=== PATIENT | male | born 1935 | race African-American/Black ===

== ENCOUNTER 2020-05-29 04:06 | Observation (INO) | payer MEDICARE ==
[2020-05-29 04:55] LABS: #Eosinphils 0.3 10x3/uL (0.0-0.5); #Monocytes 0.6 10x3/uL (0.0-1.1); #Neutrophils 3.2 10x3/uL (1.5-8.4); %Basophils 0.3 % (0.0-2.0); %Eosinophils 4.3 % (0.0-6.0); %Lymphocytes 28.6 % (18.0-47.0); %Monocytes 10.9 % (0.0-10.0); %Neutrophils 55.6 % (40.0-75.0); Hemoglobin 11.1 g/dL (13.5-17.5); Mean Corpuscular HGB CONC 31.8 g/dL (32.0-36.0); Mean Corpuscular Hemoglobin 28.2 pg (27.0-33.0); Mean Corpuscular Volume 88.6 fl (81.2-95.1); Mean Platelet Volume 10.1 fl (7.4-10.4); RBC Distribution Width 15.2 % (11.5-14.5); Red Blood Cell (RBC) Count 3.94 10x6/uL (4.32-5.72); White Blood Cell (WBC) Count 5.8 10x3/uL (3.5-10.5)
[2020-05-29 05:03] LABS: Bilirubin Neg (Negative); Blood, Urine Negative (Negative); Clarity Clear (Clear); Glucose, Urine (Dipstick) Normal (Negative); Ketone, Urine Negative (Negative); Leukocyte Negative (Negative); Nitrite Negative (Negative); Protein, Urine (Dipstick) 15 mg/dl (Neg-Trace); Urobilinogen Normal mg/dL (Less than 2)
[2020-05-29 05:10] LABS: ALT (SGPT) 17 U/L (8-55); AST (SGOT) 17 U/L (5-34); Albumin 4.4 g/dL (3.4-4.8); Alkaline Phosphatase 71 U/L (40-110); Anion Gap 17 mmol/L (10-20); BUN (Urea Nitrogen) 22 mg/dL (8.4-25.7); Bilirubin, Total 0.4 mg/dL (0.2-1.2); Calc. Creatinine Clearance 0 mL/min (70-130); Carbon Dioxide 25 mmol/L (23-31); Chloride 104 mmol/L (98-107); Globulin 3.4 g/dL (2.4-3.5); Glucose 140 mg/dL (83-110); Potassium 4.7 mmol/L (3.5-5.1); Protein, Total 7.8 g/dL (5.8-8.1); Sodium 141 mmol/L (136-145)
[2020-05-29 05:26] LABS: Platelet Count 193 10x3/uL (150-450)
[2020-05-29 05:41] LABS: SARS-CoV-2 NAA Rapid Test Not Detected (NotDetected)
[2020-05-29] MEDS ORDERED: Acetaminophen 325 MG TAB PO PRN (08:55)
[2020-05-29] MEDS ORDERED: Ondansetron PF 4 MG/2 ML Vial IVP PRN (08:55)
[2020-05-29] MEDS ORDERED: Dextrose 5% in Water 1,000 ML IV PRN (09:00)
[2020-05-29] MEDS ORDERED: Insulin Regular 300 UNITS/3 ML VIAL SC PRN (09:00)
[2020-05-29] MEDS ORDERED: Dextrose 50% Abboject 50 ML SYRINGE SLOW IVP PRN (09:00)
[2020-05-29] MEDS ORDERED: Simethicone Chewable 80 MG TAB PO PRN (09:01)
[2020-05-29 09:58] LABS: Troponin I Less than 0.010 ng/mL (< 0.028)
[2020-05-29] MEDS ORDERED: Mag-Al Plus 1200 MG/1200 MG/120 MG/30 ML UDCUP PO PRN (10:52)
[2020-05-29 12:21] LABS: Troponin I 0.017 ng/mL (< 0.028)
[2020-05-29 13:35] VITALS: BMI 30.2
[2020-05-29] MEDS: Enoxaparin Sodium 40 MG/0.4 ML SYRINGE SC SCH (13:56)
[2020-05-29] MEDS: Aspirin Chewable 81 MG TAB PO SCH (13:56)
[2020-05-29] MEDS ORDERED: Amlodipine 5 MG TAB PO SCH (15:00)
[2020-05-29] MEDS: HumaLOG 300 UNITS/3 ML VIAL SC PRN (15:56)
[2020-05-29] MEDS ORDERED: Atorvastatin Calcium 10 MG TAB PO SCH (21:00)
[2020-05-30 05:41] LABS: #Eosinphils 0.2 10x3/uL (0.0-0.5); #Monocytes 0.6 10x3/uL (0.0-1.1); #Neutrophils 2.9 10x3/uL (1.5-8.4); %Basophils 0.6 % (0.0-2.0); %Eosinophils 4.3 % (0.0-6.0); %Monocytes 11.5 % (0.0-10.0); %Neutrophils 59.4 % (40.0-75.0); Hemoglobin 11.2 g/dL (13.5-17.5); Mean Corpuscular HGB CONC 31.6 g/dL (32.0-36.0); Mean Corpuscular Hemoglobin 28.1 pg (27.0-33.0); Mean Corpuscular Volume 88.9 fl (81.2-95.1); Mean Platelet Volume 10.5 fl (7.4-10.4); Platelet Count 196 10x3/uL (150-450); RBC Distribution Width 14.9 % (11.5-14.5); Red Blood Cell (RBC) Count 3.98 10x6/uL (4.32-5.72); White Blood Cell (WBC) Count 4.9 10x3/uL (3.5-10.5)
[2020-05-30 05:57] LABS: ALT (SGPT) 15 U/L (8-55); AST (SGOT) 17 U/L (5-34); Albumin 4.2 g/dL (3.4-4.8); Alkaline Phosphatase 57 U/L (40-110); Anion Gap 12 mmol/L (10-20); BUN (Urea Nitrogen) 17 mg/dL (8.4-25.7); Bilirubin, Total 0.5 mg/dL (0.2-1.2); Calc. Creatinine Clearance 75 mL/min (70-130); Calcium 9.9 mg/dL (7.8-10.44); Carbon Dioxide 28 mmol/L (23-31); Cardiac Risk 3.6 (Less than 4.5); Chloride 103 mmol/L (98-107); Cholesterol 171 mg/dl (< 200 Desired); Globulin 3.7 g/dL (2.4-3.5); Glucose 117 mg/dL (83-110); HDL Cholesterol 48 mg/dL (>60 Neg Risk); LDL Cholesterol, Calculated 110 mg/dL; Potassium 4.5 mmol/L (3.5-5.1); Protein, Total 7.9 g/dL (5.8-8.1); Sodium 138 mmol/L (136-145); Triglycerides 67 mg/dL (Less than 150)
[2020-05-30] MEDS: Enoxaparin Sodium 40 MG/0.4 ML SYRINGE SC SCH (09:04)
[2020-05-30] MEDS: Aspirin Chewable 81 MG TAB PO SCH (09:04)
[2020-05-30] MEDS: HumaLOG 300 UNITS/3 ML VIAL SC PRN (11:44)
[2020-05-30 12:20] VITALS: BP 137/71; TEMP 98.9
[2020-05-30 12:24] LABS: Hemoglobin A1c 6.9 % (4.0-6.0)
== END 2020-05-30 17:45 | disposition home or self-care (01) ==
LOC: CSHERS 04:06 → CSHTELE 08:55 → UNDOADMOB 10:19 → CSHTELE 10:19 → INTOOBSV 10:19
PROVIDERS: ADMIT Internal Medicine; ATTEND Internal Medicine
DX: R10.13 Epigastric pain (principal); R07.89 Other chest pain; K21.9 Gastro-esophageal reflux disease without esophagitis; I10 Essential (primary) hypertension; E78.5 Hyperlipidemia, unspecified; E11.9 Type 2 diabetes mellitus without complications; Z79.899 Other long term (current) drug therapy; Z79.82 Long term (current) use of aspirin; Z20.822 Contact with and (suspected) exposure to COVID-19
CPT/HCPCS: 0240U; 71045; 71275; 80053 ×2; 80061; 81003; 82962 ×2; 83036; 83880; 84484 ×2; 85025 ×2; 85379; 87086; 93005; 93306; 94760 ×2; 96372; 99285; G0378 ×3; 36415; 36416; J1650

== ENCOUNTER 2022-10-19 00:46 | Observation (INO) | payer OTHER ==
[2022-10-19 02:45] VITALS: BMI 27.0
[2022-10-19] MEDS ORDERED: Ondansetron PF 4 MG/2 ML Vial IVP PRN (04:21)
[2022-10-19] MEDS ORDERED: Glucagon 1 MG/ML KIT IM PRN (04:21)
[2022-10-19] MEDS ORDERED: Dextrose 5% in Water 1,000 ML IV PRN (04:21)
[2022-10-19] MEDS ORDERED: Dextrose 50% Abboject 50 ML SYRINGE SLOW IVP PRN (04:21)
[2022-10-19] MEDS ORDERED: Acetaminophen 325 MG TAB PO PRN (04:21)
[2022-10-19] MEDS ORDERED: Ondansetron ODT 4 MG TAB PO PRN (04:21)
[2022-10-19] MEDS ORDERED: Simethicone Chewable 80 MG TAB PO PRN (04:31)
[2022-10-19] MEDS ORDERED: Ventolin HFA Inhaler 60 PUFF INHALER INH PRN (04:44)
[2022-10-19 05:12] LABS: Hematocrit 32.2 % (38.8-50.0); Hemoglobin 10.5 g/dL (13.5-17.5); Mean Corpuscular HGB CONC 32.6 g/dL (32.0-36.0); Mean Corpuscular Hemoglobin 27.1 pg (27.0-33.0); Mean Platelet Volume 9.7 fl (7.4-10.4); Platelet Count 170 10x3/uL (150-450); RBC Distribution Width 16.3 % (11.5-14.5); Red Blood Cell (RBC) Count 3.88 10x6/uL (4.32-5.72)
[2022-10-19 05:15] LABS: MDiff Complete? YES
[2022-10-19 05:17] LABS: INR-International Normal Ratio 1.2; PTT 33.4 sec (22.0-33.0); Prothrombin Time 12.8 sec (9.5-12.1)
[2022-10-19 05:21] LABS: Anion Gap 16 mmol/L (10-20); BUN (Urea Nitrogen) 11 mg/dL (8.4-25.7); CRP (Inflammatory) 4.69 mg/dL (= or < 0.5); Calc. Creatinine Clearance 67 mL/min (70-130); Calcium 9.6 mg/dL (7.8-10.44); Carbon Dioxide 22 mmol/L (23-31); Chloride 98 mmol/L (98-107); Estimated GFR 83; Glucose 165 mg/dL (83-110); Magnesium 1.4 mg/dL (1.6-2.6); Sodium 132 mmol/L (136-145)
[2022-10-19] MEDS: Sodium Chloride 0.9% 1,000 ML IV SCH ×3 (05:34→20:18)
[2022-10-19 06:37] LABS: Lymphocytes 5 % (21-51); Monocytes 6 % (0-10); Neutrophil 89 % (42-75)
[2022-10-19] MEDS: HumaLOG 300 UNITS/3 ML VIAL SC PRN ×3 (06:41→16:49)
[2022-10-19 06:43] LABS: Anisocytosis SLIGHT = 6-15 cells (100X) (0-5/hpf); Hypochromia SLIGHT = 6-15 cells (100X) (0-5/hpf); Macrocytosis SLIGHT = 6-15 cells (100X) (0-5/hpf); Microcytosis SLIGHT = 6-15 cells (100X) (0-5/hpf); Schistocytes SLIGHT = 2-5 cells (100X) (0-1/hpf)
[2022-10-19 06:44] LABS: Platelet Adequacy Comment Appears Adequate; Polychromasia SLIGHT = 2-3 cells (100X) (0-2/hpf)
[2022-10-19] MEDS: Cholecalciferol 1,000 UNITS (25 MCG) TAB PO SCH (08:13)
[2022-10-19] MEDS: Aspirin Chewable 81 MG TAB PO SCH (08:13)
[2022-10-19] MEDS: Ferrous Gluconate 324 MG TAB PO SCH (08:13)
[2022-10-19] MEDS: Losartan Potassium 50 MG TAB PO SCH (08:14)
[2022-10-19] MEDS: Ascorbic Acid 500 mg Chewable Tablet PO SCH (08:14)
[2022-10-19] MEDS: Zinc Sulfate 220 MG CAP PO SCH (08:14)
[2022-10-19] MEDS ORDERED: Cholecalciferol 1,000 UNITS (25 MCG) TAB PO SCH (09:00)
[2022-10-19] MEDS: Dexamethasone 20 MG/5 ML VIAL SLOW IVP SCH (09:55)
[2022-10-19] MEDS ORDERED: Amlodipine 5 MG TAB PO SCH (15:00)
[2022-10-19] MEDS ORDERED: Atorvastatin Calcium 20 MG TAB PO SCH (21:00)
[2022-10-20 05:33] LABS: #Neutrophils 7.6 10x3/uL (1.5-8.4); %Basophils 0.1 % (0.0-2.0); %Lymphocytes 5.6 % (18.0-47.0); %Monocytes 10.9 % (0.0-10.0); %Neutrophils 83.1 % (40.0-75.0); Hematocrit 34.4 % (38.8-50.0); Mean Corpuscular Hemoglobin 26.7 pg (27.0-33.0); Mean Corpuscular Volume 83.5 fl (81.2-95.1); Mean Platelet Volume 10.1 fl (7.4-10.4); Platelet Count 202 10x3/uL (150-450); RBC Distribution Width 16.5 % (11.5-14.5); Red Blood Cell (RBC) Count 4.12 10x6/uL (4.32-5.72); White Blood Cell (WBC) Count 9.1 10x3/uL (3.5-10.5)
[2022-10-20 05:50] LABS: Anion Gap 15 mmol/L (10-20); BUN (Urea Nitrogen) 12 mg/dL (8.4-25.7); Calc. Creatinine Clearance 74 mL/min (70-130); Calcium 9.7 mg/dL (7.8-10.44); Carbon Dioxide 24 mmol/L (23-31); Chloride 105 mmol/L (98-107); Estimated GFR 86; Glucose 142 mg/dL (83-110); Potassium 4.2 mmol/L (3.5-5.1); Sodium 140 mmol/L (136-145)
[2022-10-20] MEDS: Sodium Chloride 0.9% 1,000 ML IV SCH (06:50)
[2022-10-20 07:05] VITALS: TEMP 98.3
[2022-10-20] MEDS: Aspirin Chewable 81 MG TAB PO SCH (08:09)
[2022-10-20] MEDS: Ferrous Gluconate 324 MG TAB PO SCH (08:09)
[2022-10-20] MEDS: Losartan Potassium 50 MG TAB PO SCH (08:09)
[2022-10-20] MEDS: Ascorbic Acid 500 mg Chewable Tablet PO SCH (08:10)
[2022-10-20] MEDS: Cholecalciferol 1,000 UNITS (25 MCG) TAB PO SCH (08:10)
[2022-10-20] MEDS: Zinc Sulfate 220 MG CAP PO SCH (08:10)
[2022-10-20] MEDS: Dexamethasone 20 MG/5 ML VIAL SLOW IVP SCH (08:12)
[2022-10-20] MEDS ORDERED: Iopamidol 370 76% 100 ML VIAL ONE (08:42)
[2022-10-20 11:07] VITALS: BP 174/81
== END 2022-10-20 11:38 | disposition home health service (06) ==
LOC: INTOOBSV 02:21 → CSHTELE 02:21
PROVIDERS: ADMIT Family Medicine; ATTEND Internal Medicine
DX: U07.1 COVID-19 (principal); J96.01 Acute respiratory failure with hypoxia; E11.9 Type 2 diabetes mellitus without complications; I10 Essential (primary) hypertension; J44.9 Chronic obstructive pulmonary disease, unspecified; E78.5 Hyperlipidemia, unspecified; K21.9 Gastro-esophageal reflux disease without esophagitis; E87.1 Hypo-osmolality and hyponatremia; R79.89 Other specified abnormal findings of blood chemistry; Z79.82 Long term (current) use of aspirin; Z79.84 Long term (current) use of oral hypoglycemic drugs; Z79.899 Other long term (current) drug therapy; Z87.891 Personal history of nicotine dependence; Z95.0 Presence of cardiac pacemaker
CPT/HCPCS: 71275; 80048 ×2; 82962 ×2; 83735; 85025 ×2; 85610; 85730; 86140; 93005; 94640; 94664; 94760 ×2; 96365; 96372 ×2; 96375; 96376; 97116; G0378 ×2; J3475; 36416; 93010; J1100; J1650; J1815; J7050; Q9967